=== PATIENT | female | born 1975 | race Asian ===

== ENCOUNTER 2017-09-28 11:22 | Emergency (ER) | payer SELFPAY ==
[2017-09-28] MEDS: IPRATRPIUM/ALBUTEROL 0.5/2.5MG 3 ML NEBU. NEB (11:45)
[2017-09-28] MEDS ORDERED: methylPREDNISolone SOD SUCC PF 125 MG/2 ML VIAL. IV (11:45)
[2017-09-28] MEDS: methylPREDNISolone SOD SUCC PF 125 MG/2 ML VIAL. IM (12:06)
== END 2017-09-28 12:45 | disposition home or self-care (01) ==
LOC: ER 11:22
DX: T78.1XXA Other adverse food reactions, not elsewhere classified, initial encounter (principal); L27.2 Dermatitis due to ingested food; Z91.013 Allergy to seafood; X58.XXXA Exposure to other specified factors, initial encounter
CPT/HCPCS: 96372; 99283; J2930